=== PATIENT | male | born 1955 | race Caucasian/White ===

== ENCOUNTER 2023-08-21 21:02 | Inpatient (IN) ==
[2023-08-21] MEDS ORDERED: cefTRIAXone 1 gm/50 mL D5W 1 GM/50 ML BAG IV ONE (22:32)
[2023-08-21] MEDS ORDERED: Azithromycin 500 mg/250 ml NS 500 MG/250 ML BAG IVPB ONE (22:32)
[2023-08-21 22:48] LABS: ABS Lymphocytes 0.4 10^3/uL (1.0-4.8); ABS Monocytes 1.2 10^3/uL (0.0-1.1); ABS Neutrophils 10.5 10^3/uL (1.5-7.6); ABS Nucleated RBC 0.01 10^3/ul; Hematocrit 45.1 % (38-53); Hemoglobin 15.1 g/dL (13.2-16.3); Lymphocyte % 3.2 %; Mean Corpuscular Hemoglobin 30.7 pg (27-33); Mean Corpuscular Hgb Conc 33.5 g/dL (31-36); Mean Corpuscular Volume 91.6 fL (80-97); Mean Platelet Volume 7.8 fL (7.5-11.2); Nucleated Red Blood Cells % 0.1 %/100WBC (0.0-0.8); Platelet Count 222 10^3/uL (150-450); Red Blood Count 4.93 10^6/uL (4.06-5.63); Red Cell Distribution Width 13.5 % (12-17); White Blood Count 12.1 10^3/uL (3.6-10.2)
[2023-08-21 23:08] LABS: Albumin 4.2 g/dL (3.2-5.2); Albumin/Globulin Ratio 1.4 (1-3); Calcium 9.3 mg/dL (8.6-10.3); Creatinine, Serum 0.69 mg/dL (0.67-1.17); Magnesium 1.8 mg/dL (1.9-2.7); Potassium 4.1 mmol/L (3.5-5.0); Total Bilirubin 0.6 mg/dL (0.2-1.0); Total Protein 7.2 g/dL (6.4-8.9); eGFR CKD-EPI 102.1 (>60)
[2023-08-21] MEDS ORDERED: Iodixanol (CONTRAST) 320 MG/ML 100 ML SDV IV ONE (23:32)
[2023-08-22 01:00] LABS: High Sensitivity Troponin 1 Hr 20 pg/mL (<20)
[2023-08-22] MEDS ORDERED: Dexamethasone IV 4 MG/ML VIAL 1 ml VIAL IV SLOW PU ONE (02:01)
[2023-08-22] MEDS ORDERED: Albuterol/Ipratropium NEB.SOL (2.5/0.5 MG) 3 ML NEB.SOLN INH ONE (02:01)
[2023-08-22] MEDS ORDERED: Albuterol/Ipratropium NEB.SOL (2.5/0.5 MG) 3 ML NEB.SOLN ONE (03:21)
[2023-08-22] MEDS ORDERED: Albuterol 2.5mg/3 ml (0.083%) NEB.SOLN INH PRN (04:59)
[2023-08-22 05:04] LABS: Resp Rate 30
[2023-08-22 05:08] LABS: PCO2 Arterial 61 mmHg (35-45); PO2 Arterial 79 mmHg (80-100)
[2023-08-22] MEDS: Enoxaparin 40 MG/0.4 ML SYR SUBCUT SCH (05:54)
[2023-08-22 06:35] LABS: ABS Lymphocytes 0.3 10^3/uL (1.0-4.8); ABS Monocytes 0.9 10^3/uL (0.0-1.1); ABS Neutrophils 8.8 10^3/uL (1.5-7.6); ABS Nucleated RBC 0.01 10^3/ul; Hematocrit 43.2 % (38-53); Hemoglobin 14.4 g/dL (13.2-16.3); Lymphocyte % 3.1 %; Mean Corpuscular Hemoglobin 30.5 pg (27-33); Mean Corpuscular Hgb Conc 33.3 g/dL (31-36); Mean Corpuscular Volume 91.7 fL (80-97); Mean Platelet Volume 8.1 fL (7.5-11.2); Nucleated Red Blood Cells % 0.1 %/100WBC (0.0-0.8); Platelet Count 223 10^3/uL (150-450); Red Blood Count 4.72 10^6/uL (4.06-5.63); Red Cell Distribution Width 13.3 % (12-17)
[2023-08-22 06:59] LABS: Calcium 9.2 mg/dL (8.6-10.3); Creatinine, Serum 0.78 mg/dL (0.67-1.17); HDL Cholesterol 63.6 mg/dL; Magnesium 1.9 mg/dL (1.9-2.7); Potassium 4.4 mmol/L (3.5-5.0); eGFR CKD-EPI 98.4 (>60)
[2023-08-22] MEDS: Albuterol/Ipratropium NEB.SOL (2.5/0.5 MG) 3 ML NEB.SOLN INH SCH ×5 (08:10→23:31)
[2023-08-22] MEDS: Nicotine PATCH 21 MG/24 HR PATCH TRANSDERM SCH (08:19)
[2023-08-22] MEDS: methylPREDNISolone SOD SUCC 40 mg/ml 1 ml VIAL IV SCH (08:21)
[2023-08-22] MEDS: Pantoprazole VIAL 40 MG VIAL IV SCH (08:21)
[2023-08-22 09:43] LABS: PCO2 Arterial 59 mmHg (35-45); PO2 Arterial 101 mmHg (80-100)
[2023-08-22] MEDS ORDERED: Sulfur Hexaflouride MICROSPHR 25 MG VIAL ONE (13:21)
[2023-08-23] MEDS: cefTRIAXone 1 gm/50 mL D5W 1 GM/50 ML BAG IV SCH ×2 (00:27→22:53)
[2023-08-23] MEDS: Albuterol/Ipratropium NEB.SOL (2.5/0.5 MG) 3 ML NEB.SOLN INH SCH ×3 (03:18→11:33)
[2023-08-23] MEDS: Enoxaparin 40 MG/0.4 ML SYR SUBCUT SCH (05:27)
[2023-08-23 05:49] LABS: ABS Monocytes 0.9 10^3/uL (0.0-1.1); ABS Nucleated RBC 0.01 10^3/ul; Hematocrit 39.3 % (38-53); Hemoglobin 13.2 g/dL (13.2-16.3); Lymphocyte % 12.3 %; Mean Corpuscular Hemoglobin 30.4 pg (27-33); Mean Corpuscular Hgb Conc 33.6 g/dL (31-36); Mean Corpuscular Volume 90.4 fL (80-97); Mean Platelet Volume 7.7 fL (7.5-11.2); Nucleated Red Blood Cells % 0.1 %/100WBC (0.0-0.8); Platelet Count 222 10^3/uL (150-450); Red Blood Count 4.34 10^6/uL (4.06-5.63); Red Cell Distribution Width 13.3 % (12-17); White Blood Count 7.9 10^3/uL (3.6-10.2)
[2023-08-23 06:07] LABS: Calcium 9.5 mg/dL (8.6-10.3); Creatinine, Serum 0.73 mg/dL (0.67-1.17); Potassium 3.8 mmol/L (3.5-5.0); eGFR CKD-EPI 100.3 (>60)
[2023-08-23] MEDS: Nicotine PATCH 21 MG/24 HR PATCH TRANSDERM SCH (08:33)
[2023-08-23] MEDS: Pantoprazole VIAL 40 MG VIAL IV SCH (08:35)
[2023-08-23] MEDS: methylPREDNISolone SOD SUCC 40 mg/ml 1 ml VIAL IV SCH ×2 (08:41→21:06)
[2023-08-23] MEDS: Azithromycin 500 mg/250 ml NS 500 MG/250 ML BAG IVPB SCH (10:20)
[2023-08-23] MEDS ORDERED: Albuterol/Ipratropium NEB.SOL (2.5/0.5 MG) 3 ML NEB.SOLN INH PRN (11:35)
[2023-08-23] MEDS ORDERED: Magnesium Hydroxide LIQ 30 ML UDC PO PRN (14:42)
[2023-08-23] MEDS ORDERED: Senna TAB 8.6 mg TAB PO SCH (21:00)
[2023-08-23] MEDS ORDERED: Polyethylene Glycol 3350 17 GM PACKET PO SCH (21:00)
[2023-08-24] MEDS: Enoxaparin 40 MG/0.4 ML SYR SUBCUT SCH (05:28)
[2023-08-24 06:28] LABS: Hematocrit 39.2 % (38-53); Hemoglobin 13.2 g/dL (13.2-16.3); Mean Corpuscular Hemoglobin 30.6 pg (27-33); Mean Corpuscular Hgb Conc 33.6 g/dL (31-36); Mean Corpuscular Volume 91.1 fL (80-97); Mean Platelet Volume 7.7 fL (7.5-11.2); Platelet Count 238 10^3/uL (150-450); Red Cell Distribution Width 13.2 % (12-17); White Blood Count 7.9 10^3/uL (3.6-10.2)
[2023-08-24 06:46] LABS: Calcium 8.7 mg/dL (8.6-10.3); Creatinine, Serum 0.7 mg/dL (0.67-1.17); Magnesium 2.1 mg/dL (1.9-2.7); Potassium 4.4 mmol/L (3.5-5.0); eGFR CKD-EPI 101.6 (>60)
[2023-08-24 07:27] LABS: ABS Lymphocytes 0.8 10^3/uL (1.0-4.8); ABS Monocytes 0.5 10^3/uL (0.0-1.1); ABS Neutrophils 6.5 10^3/uL (1.5-7.6); Lymphocyte % 10.1 %
[2023-08-24] MEDS: methylPREDNISolone SOD SUCC 40 mg/ml 1 ml VIAL IV SCH ×2 (09:30→21:53)
[2023-08-24] MEDS: Pantoprazole VIAL 40 MG VIAL IV SCH (09:30)
[2023-08-24] MEDS: Nicotine PATCH 21 MG/24 HR PATCH TRANSDERM SCH (09:30)
[2023-08-24] MEDS: Azithromycin 500 mg/250 ml NS 500 MG/250 ML BAG IVPB SCH (09:31)
[2023-08-24] MEDS: cefTRIAXone 1 gm/50 mL D5W 1 GM/50 ML BAG IV SCH (23:08)
[2023-08-25] MEDS: Enoxaparin 40 MG/0.4 ML SYR SUBCUT SCH (05:29)
[2023-08-25] MEDS: Nicotine PATCH 21 MG/24 HR PATCH TRANSDERM SCH (09:21)
[2023-08-25] MEDS: Pantoprazole VIAL 40 MG VIAL IV SCH (09:24)
[2023-08-25] MEDS: methylPREDNISolone SOD SUCC 40 mg/ml 1 ml VIAL IV SCH (09:24)
[2023-08-25] MEDS: Azithromycin 500 mg/250 ml NS 500 MG/250 ML BAG IVPB SCH (09:40)
[2023-08-25 10:35] LABS: Hematocrit 43.1 % (38-53); Hemoglobin 14.7 g/dL (13.2-16.3); Mean Corpuscular Hemoglobin 30.9 pg (27-33); Mean Corpuscular Hgb Conc 34.1 g/dL (31-36); Mean Corpuscular Volume 90.5 fL (80-97); Mean Platelet Volume 7.6 fL (7.5-11.2); Platelet Count 264 10^3/uL (150-450); Red Blood Count 4.77 10^6/uL (4.06-5.63); Red Cell Distribution Width 13.2 % (12-17)
[2023-08-25 10:49] LABS: Creatinine, Serum 0.71 mg/dL (0.67-1.17); Magnesium 2.2 mg/dL (1.9-2.7); Potassium 3.8 mmol/L (3.5-5.0); eGFR CKD-EPI 101.2 (>60)
[2023-08-25 10:59] LABS: ABS Lymphocytes 1.7 10^3/uL (1.0-4.8); ABS Neutrophils 7.2 10^3/uL (1.5-7.6); ABS Nucleated RBC 0.02 10^3/ul; Eosinophil % 0.1 %; Nucleated Red Blood Cells % 0.2 %/100WBC (0.0-0.8)
[2023-08-25 13:16] VITALS: BP 185/98
== END 2023-08-25 15:10 | disposition home or self-care (01) | DRG 190 ==
LOC: ED 21:02 → SUATTDRO 08-22 04:36 → EDHOLD 08-22 04:36 → ICU 08-22 15:20 → MEDTELE 08-22 16:50 → MED 08-24 22:16
PROVIDERS: ADMIT Student in an Organized Health Care Education/Training Program; ATTEND Internal Medicine